=== PATIENT | male | born 1990 ===

== ENCOUNTER 2016-09-16 06:13 | Emergency (ER) | payer BC ==
[2016-09-16 06:25] VITALS: TEMP 98.7
--- NOTE | 2016-09-16 07:33 | ED PDOC ---
HPI: Chest Pain Time Seen by Provider: 09/16/16 07:12 Chief Complaint (Nursing): Chest Pain Chief Complaint (Provider): Chest Pain History Per: Patient History/Exam Limitations: no limitations Onset/Duration Of Symptoms: Days Current Symptoms Are (Timing): Still Present Severity: Moderate Pain Scale Rating Of: 7 Quality: Pressure Associated Symptoms: Dyspnea Modifying Factors: None Exacerbating Factors: Deep Breathing Alleviating Factors: None Additional Complaint(s): Patient is a 26 year old male with no past medical history, presents to ED for mid sternal chest pain that began 2 days ago. Patient notes pain is intermittent , pressure and 7/10. Patient states pain is worsened with deep breathing. Denies cough, fever, headache, palpations, radiation of pain or history of DVT . PMD: Dr. Porfirio Haque Past Medical History Reviewed: Historical Data, Nursing Documentation, Vital Signs Vital Signs: Last Vital Signs Temp 98.7 F 09/16/16 06:23 Pulse 58 L 09/16/16 07:48 Resp 12 09/16/16 07:48 BP 114/68 09/16/16 07:48 Pulse Ox 96 09/16/16 07:48 - Medical History PMH: Anxiety, Gastritis (2014) Denies: HTN, Chronic Kidney Disease - Surgical History Surgical History: Appendectomy - Family History Family History: States: Unknown Family Hx, Hypertension, Other (Maternal Aunt (+ ) " Heart problem" ) Denies: CAD - Living Arrangements Living Arrangements: With Family - Immunization History Hx Tetanus Toxoid Vaccination: No Hx Influenza Vaccination: No Hx Pneumococcal Vaccination: No - Home Medications Home Medications: Ambulatory Orders Medication Instructions Recorded Amoxicillin 875 mg PO BID #14 tablet 08/10/16 Ibuprofen [Motrin] 600 mg PO Q6 PRN #20 tab 08/10/16 Prilosec Otc 20 mg PO DAILY 08/10/16 Acetaminophen [Tylenol 325mg tab] 650 mg PO Q6H PRN #50 tab 09/16/16 - Allergies Allergies/Adverse Reactions: Allergies Allergy/AdvReac Type Severity Reaction Status Date / Time No Known Allergies Allergy Verified 08/10/16 17:00 MELYSSA Risk Score for UA/NSTEMI - MELYSSA Risk Score Age > 64: NO 3 or more CAD Risk Factors: NO Known CAD (Stenosis greater than 50%): NO Aspirin use in past 7 days: NO Severe Angina: NO EKG ST changes greater than 0.5mm: NO Positive Cardiac Marker: NO MELYSSA Score: 0 Risk %: 5% Review of Systems ROS Statement: Except As Marked, All Systems Reviewed And Found Negative Constitutional: Negative for: Fever, Chills Cardiovascular: Positive for: Chest Pain. Negative for: Palpitations, Light Headedness Respiratory: Positive for: Pleuritic Pain. Negative for: Cough Gastrointestinal: Negative for: Nausea, Vomiting Musculoskeletal: Negative for: Neck Pain, Back Pain Skin: Negative for: Rash Physical Exam - Reviewed Nursing Documentation Reviewed: Yes Vital Signs Reviewed: Yes - Physical Exam Appears: Positive for: Non-toxic, No Acute Distress Skin: Positive for: Normal Color, Warm Eye Exam: Positive for: Normal appearance Neck: Positive for: Normal, Painless ROM, Supple Cardiovascular/Chest: Positive for: Regular Rate, Rhythm. Negative for: JVD, Murmur Respiratory: Positive for: Normal Breath Sounds. Negative for: Respiratory Distress Back: Positive for: Normal Inspection Extremity: Positive for: Normal ROM. Negative for: Pedal Edema, Calf Tenderness Neurologic/Psych: Positive for: Alert, Oriented - Laboratory Results Result Diagrams: 09/16/16 07:45 09/16/16 07:45 - ECG ECG: Positive for: Interpreted By Me ECG Rhythm: Positive for: Normal QRS, Normal ST Segment, Sinus Bradycardia. Negative for: ST/T Changes Rate: 54 O2 Sat by Pulse Oximetry: 100 (RA) Pulse Ox Interpretation: Normal - Radiology X-Ray: Viewed By Me X-Ray Interpretation: No Acute Disease Medical Decision Making Medical Decision Making: Time: 724 Initial impression: Chest pain r/o ACS Initial plan: -- EKG -- BMP -- CK-MB -- CBC -- Creatine -- LDH -- Troponin -- CXR -- Cardiac monitoring Scribe Attestation: Documented by Magdalena Richardson acting as a scribe for Ashleigh Dao MD MD Scribe Attestation: All medical record entries made by the Scribe were at my direction and personally dictated by me. I have reviewed the chart and agree that the record accurately reflects my personal performance of the history, physical exam, medical decision making, and the department course for this patient. I have also personally directed, reviewed, and agree with the discharge instructions and disposition. Disposition - Clinical Impression Clinical Impression: Chest discomfort - Patient ED Disposition Is Patient to be Admitted: No Doctor Will See Patient In The: Office Counseled Patient/Family Regarding: Diagnosis, Need For Followup, Rx Given - Disposition Disposition: Routine/Home Disposition Time: 08:43 Condition: STABLE Prescriptions: Acetaminophen [Tylenol 325mg tab] 650 mg PO Q6H PRN #50 tab PRN Reason: Pain, Mild (1-3) Instructions: Chest Pain (ED) Forms: [facility] ED School/Work Excuse Print Language: TELUGU - POA Present On Arrival: None
[2016-09-16 07:53] VITALS: BP 114/68; RESP 12
[2016-09-16 07:58] LABS: BASO % 0.9 % (0.0-2.0); EOS # 0.1 K/uL (0.0-0.7); EOS % 3.2 % (0.0-4.0); LYMPH # 2.2 K/uL (1.0-4.3); MEAN CELL VOLUME 86.7 fl (80.0-94.0); MEAN CORPUSCULAR HEMOGLOBIN 28.9 pg (27.0-31.0); MEAN CORPUSCULAR HGB CONC 33.3 g/dL (33.0-37.0); MEAN PLATELET VOLUME 8.4 fl (7.2-11.7); MONO # 0.4 K/uL (0.0-0.8); MONO % 9.1 % (0.0-10.0); NEUT # 1.4 K/uL (1.8-7.0); NEUT % 33.8 % (50.0-75.0); NRBC % 0.5 % (0.0-0.0); RED CELL DISTRIBUTION WIDTH 13.6 % (11.5-14.5); WHITE BLOOD COUNT 4.2 K/uL (4.8-10.8)
[2016-09-16 08:09] LABS: BLOOD UREA NITROGEN 11 mg/dl (9-20); CALCIUM 9.7 mg/dL (8.4-10.2); CARBON DIOXIDE 29 mmol/L (22-30); CHLORIDE 103 mmol/L (98-107); GFR AFRICAN-AMERICAN > 60; GLUCOSE,RANDOM 86 mg/dL (75-110); POTASSIUM 4.4 MMOL/L (3.6-5.0); SODIUM 145 mmol/l (132-148)
[2016-09-16 08:44] VITALS: PULSE 54; O2SAT 100
--- NOTE | 2016-09-16 09:36 | RAD ---
HISTORY: chest pain COMPARISON: 10/29/2015 TECHNIQUE: Chest PA and lateral FINDINGS: LUNGS: No focal airspace opacity. PLEURA: No significant pleural effusion identified. No pneumothorax apparent. CARDIOVASCULAR: Normal. OSSEOUS STRUCTURES: No significant abnormalities. VISUALIZED UPPER ABDOMEN: Normal. OTHER FINDINGS: None. IMPRESSION: No focal airspace opacity.
--- NOTE | 2016-09-17 19:02 | CARD ---
APPROVED REPORT EKG Measurement Heart [id number] <Conclusion> Sinus bradycardia Otherwise normal ECG
== END 2016-09-16 08:59 | disposition home or self-care (01) ==
LOC: H.ER 06:13
DX: R07.9 Chest pain, unspecified (principal); F41.9 Anxiety disorder, unspecified

== ENCOUNTER 2016-10-13 09:30 | Day surgery (SDC) | payer BC ==
[2016-10-13] MEDS: Lactated Ringer's 500 ML IV ONE (12:29)
[2016-10-13 12:34] VITALS: O2SAT 100
[2016-10-13] MEDS ORDERED: Propofol 10 mg/ml Inj (20 ML) ONE ×2 (13:01→13:21)
[2016-10-13] MEDS ORDERED: Midazolam 2 MG/2 ML VIAL ONE (13:01)
[2016-10-13 13:30] VITALS: TEMP 97
[2016-10-13 13:47] VITALS: BP 107/64; PULSE 76; RESP 20
== END 2016-10-13 13:58 | disposition home or self-care (01) ==
LOC: H.ENDO 09:30
PROVIDERS: ATTEND Internal Medicine Gastroenterology
DX: K30 Functional dyspepsia (principal); K31.9 Disease of stomach and duodenum, unspecified; K44.9 Diaphragmatic hernia without obstruction or gangrene
CPT/HCPCS: 43239; 88305; J2001; J2250; J2704; J7120

== ENCOUNTER 2016-10-14 01:54 | Emergency (ER) | payer BC ==
[2016-10-14 02:21] VITALS: BP 123/78; PULSE 79; RESP 16; TEMP 98.1; O2SAT 100
--- NOTE | 2016-10-14 02:35 | ED PDOC ---
HPI: Abdomen Time Seen by Provider: 10/14/16 02:20 Chief Complaint (Nursing): Abdominal Pain Chief Complaint (Provider): abdominal pain History Per: Patient History/Exam Limitations: no limitations Onset/Duration Of Symptoms: Hrs (1) Current Symptoms Are (Timing): Still Present Location Of Pain/Discomfort: RUQ, Epigastric, LUQ Additional History Per: Patient Additional Complaint(s): 26 y/o male history of gastritis presents with upper abdominal pain x 1 hour. Associated vomiting x 2. Patient states he had endoscopy yesterday morning by Dr. Millan.. Denies fever, chest pain, shortness of breath, palpitations, changes in bowel movements. Past Medical History Reviewed: Historical Data, Nursing Documentation, Vital Signs Vital Signs: Last Vital Signs Temp 98.1 F 10/14/16 02:19 Pulse 79 10/14/16 02:19 Resp 16 10/14/16 02:19 BP 123/78 10/14/16 02:19 Pulse Ox 100 10/14/16 04:08 - Medical History PMH: Anxiety, Gastritis (2014) Denies: HTN, Chronic Kidney Disease - Surgical History Surgical History: Appendectomy - Family History Family History: States: Unknown Family Hx, Hypertension Denies: CAD - Immunization History Hx Tetanus Toxoid Vaccination: No Hx Influenza Vaccination: No Hx Pneumococcal Vaccination: No - Home Medications Home Medications: Ambulatory Orders Medication Instructions Recorded Omeprazole 40 mg PO DAILY 09/24/16 - Allergies Allergies/Adverse Reactions: Allergies Allergy/AdvReac Type Severity Reaction Status Date / Time No Known Allergies Allergy Verified 10/14/16 02:19 Review of Systems ROS Statement: Except As Marked, All Systems Reviewed And Found Negative Gastrointestinal: Positive for: Nausea, Vomiting, Abdominal Pain Physical Exam - Reviewed Nursing Documentation Reviewed: Yes Vital Signs Reviewed: Yes - Physical Exam Appears: Positive for: Well, Non-toxic, No Acute Distress Head Exam: Positive for: ATRAUMATIC, NORMAL INSPECTION, NORMOCEPHALIC Skin: Positive for: Normal Color Eye Exam: Positive for: Normal appearance ENT: Positive for: Normal ENT Inspection Cardiovascular/Chest: Positive for: Regular Rate, Rhythm Respiratory: Positive for: Normal Breath Sounds Gastrointestinal/Abdominal: Positive for: Bowel Sounds, Soft, Tenderness ( epigastric, ruq, luq) Back: Positive for: Normal Inspection Extremity: Positive for: Normal ROM Neurologic/Psych: Positive for: Alert, Oriented - Laboratory Results Result Diagrams: 10/14/16 02:55 10/14/16 02:55 - ECG O2 Sat by Pulse Oximetry: 100 - Radiology X-Ray: Viewed By Me X-Ray Interpretation: No Acute Disease - Progress ED Course And Treament: labs, chest xray, IV fluids, IV pepcid On re-eval, patient states he is feeling better. Patient discharged with instructions to follow up with GI as scheduled. Continue Omeprazole. Return to ED for worsening/concerning symptoms. Disposition - Clinical Impression Clinical Impression: Abdominal pain - Patient ED Disposition Is Patient to be Admitted: No Counseled Patient/Family Regarding: Studies Performed, Diagnosis, Need For Followup - Disposition Referrals: Jamia Billy MD [Primary Care Provider] - Disposition: Routine/Home Disposition Time: 04:07 Condition: IMPROVED Instructions: Abdominal Pain (ED) Print Language: JORDANIAN
[2016-10-14] MEDS: Sodium Chloride 0.9% 1,000 ML IV STA (02:52)
[2016-10-14 03:02] LABS: BASO # 0.1 K/uL (0.0-0.2); BASO % 1.2 % (0.0-2.0); EOS # 0.1 K/uL (0.0-0.7); EOS % 2.4 % (0.0-4.0); HEMATOCRIT 41.4 % (35.0-51.0); LYMPH # 2.5 K/uL (1.0-4.3); LYMPH % 58.4 % (20.0-40.0); MEAN CELL VOLUME 86.6 fl (80.0-94.0); MEAN CORPUSCULAR HEMOGLOBIN 29.2 pg (27.0-31.0); MEAN CORPUSCULAR HGB CONC 33.7 g/dL (33.0-37.0); MEAN PLATELET VOLUME 8.8 fl (7.2-11.7); MONO # 0.4 K/uL (0.0-0.8); NEUT # 1.3 K/uL (1.8-7.0); NRBC % 0.1 % (0.0-0.0); RED CELL DISTRIBUTION WIDTH 13.1 % (11.5-14.5); WHITE BLOOD COUNT 4.3 K/uL (4.8-10.8)
[2016-10-14 03:11] LABS: ALB/GLOB RATIO 1.2 (1.0-2.1); ALKALINE PHOSPHATASE 69 U/L (38-126); ALT/SGPT 42 U/L (21-72); AST/SGOT 31 U/L (17-59); BILIRUBIN,TOTAL 0.3 mg/dl (0.2-1.3); BLOOD UREA NITROGEN 12 mg/dl (9-20); CALCIUM 9.2 mg/dL (8.4-10.2); CARBON DIOXIDE 25 mmol/L (22-30); CHLORIDE 105 mmol/L (98-107); GFR AFRICAN-AMERICAN > 60; GLUCOSE,RANDOM 103 mg/dL (75-110); LIPASE 95 U/L (23-300); POTASSIUM 3.7 MMOL/L (3.6-5.0); SODIUM 146 mmol/l (132-148); TOTAL PROTEIN 7.4 G/DL (6.3-8.2)
--- NOTE | 2016-10-14 08:54 | RAD ---
HISTORY: abd pain COMPARISON: 09/16/2016 FINDINGS: LUNGS: No active pulmonary disease. PLEURA: No significant pleural effusion identified, no pneumothorax apparent. CARDIOVASCULAR: Normal. OSSEOUS STRUCTURES: No significant abnormalities. VISUALIZED UPPER ABDOMEN: Normal. OTHER FINDINGS: None. IMPRESSION: No active disease. No interval change
== END 2016-10-14 04:20 | disposition home or self-care (01) ==
LOC: H.ER 01:54
DX: R10.13 Epigastric pain (principal); R11.10 Vomiting, unspecified
CPT/HCPCS: 71010; 80053; 83690; 85025; 96361; 96374; 99282; J7040

== ENCOUNTER 2017-11-19 21:57 | Emergency (ER) | payer BC, MEDICAID ==
[2017-11-19 21:57] VITALS: BMI 30.1
[2017-11-19 22:30] VITALS: RESP 16; O2SAT 99
[2017-11-19 23:43] VITALS: BP 127/79; PULSE 81; TEMP 98.5
--- NOTE | 2017-11-20 03:28 | ED PDOC ---
HPI: Headache Time Seen by Provider: 11/19/17 22:33 Chief Complaint (Nursing): Headache Chief Complaint (Provider): Headache History Per: Patient History/Exam Limitations: no limitations Onset/Duration Of Symptoms: Days (x 1) Additional Complaint(s): 27 years old male presents to the ED for evaluation of intermittent episodes of left sided headache associated with L sided face numbness onset 1 day. Patient reports experiencing similar symptoms in the past. He admits taking Aleve with minimal relief prior to arrival. Otherwise: (-) thunderclap headache, (-) worse headache of life, (-) nausea, (-) vomiting, (-) photophobia, (-) URI symptoms, ( -) fever, (-) trauma, (-) other subjective neurologic symptoms. PMD: Angelica Billy Past Medical History Reviewed: Historical Data, Nursing Documentation, Vital Signs Vital Signs: Last Vital Signs Temp 98.5 F 11/19/17 23:42 Pulse 81 11/19/17 23:42 Resp 16 11/19/17 23:42 BP 127/79 11/19/17 23:42 Pulse Ox 99 11/19/17 23:42 - Medical History PMH: Anxiety, Gastritis (2014) Denies: HTN, Chronic Kidney Disease - Surgical History Surgical History: Appendectomy - Family History Family History: States: Hypertension - Social History Current smoker - smoking cessation education provided: No Alcohol: None Drugs: Denies - Immunization History Hx Tetanus Toxoid Vaccination: No Hx Influenza Vaccination: No Hx Pneumococcal Vaccination: No - Home Medications Home Medications: Ambulatory Orders Medication Instructions Recorded Omeprazole 40 mg PO DAILY 09/24/16 Metoclopramide HCl [Reglan] 10 mg PO QID PRN #20 tablet 11/19/17 Naproxen 500 mg PO BID PRN #30 tab 11/19/17 - Allergies Allergies/Adverse Reactions: Allergies Allergy/AdvReac Type Severity Reaction Status Date / Time No Known Allergies Allergy Verified 10/13/17 02:14 Review of Systems ROS Statement: Except As Marked, All Systems Reviewed And Found Negative Neurological: Positive for: Numbness (left sided), Headache (left sided) Physical Exam - Physical Exam Comments: GENERAL APPEARANCE: Patient is awake, alert, oriented x 3, in no acute distress. SKIN: Warm, dry; (-) cyanosis; (-) rash. HEAD: (-) scalp swelling or tenderness, (-) temporal artery tenderness. EYES: (-) conjunctival pallor, (-) scleral icterus. ENMT: (-) sinus tenderness; mucous membranes are moist. NECK: (-) tenderness, (-) stiffness, (-) meningismus, (-) lymphadenopathy. CHEST AND RESPIRATORY: (-) rales, (-) rhonchi, (-) wheezes; breath sounds equal bilaterally. HEART AND CARDIOVASCULAR: (-) irregularity; (-) murmur, (-) gallop. ABDOMEN AND GI: Soft; (-) tenderness. EXTREMITIES: (-) deformity. NEURO AND PSYCH: Mental status as above. 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 Strength symmetric. - ECG O2 Sat by Pulse Oximetry: 99 (RA) Pulse Ox Interpretation: Normal Medical Decision Making Medical Decision Making: Time: 2252 Initial Plan: --Reglan 10 mg IM --Toradol 30 mg IM Previous medical record reviewed and patient was evaluated prior in Jul 27, 2017 for dizziness at [facility]. CT head and labs including CBC and CMP were within normal limits. Time: 2329 Upon reevaluation, patient reports improvement of symptoms. Discussed diagnosis of migraines with patient and he is comfortable being discharged home. Based on history and exam, plan will be for outpatient follow up. Patient instructed to follow-up with pmd in 1-2 days without fail. Advised to take medication as prescribed. Return to the emergency room at any time for any new or worsening symptoms. Patient states he fully agrees with and understands discharge instructions. States that he agrees with the plan and disposition. Verbalized and repeated discharge instructions and plan. I have given the patient opportunity to ask any additional questions. Scribe Attestation: Documented by Zohreh Trammell, acting as a scribe for Jaimee Lu PA-C. Provider Scribe Attestation: All medical record entries made by the Scribe were at my direction and personally dictated by me. I have reviewed the chart and agree that the record accurately reflects my personal performance of the history, physical exam, medical decision making, and the department course for this patient. I have also personally directed, reviewed, and agree with the discharge instructions and disposition. Disposition - Clinical Impression Clinical Impression: Acute headache - Patient ED Disposition Is Patient to be Admitted: No Counseled Patient/Family Regarding: Diagnosis, Need For Followup, Rx Given - Disposition Disposition: Routine/Home Disposition Time: 23:30 Condition: STABLE Additional Instructions: Thank you for letting us take care of you today. You were treated for headache. The emergency medical care you received today was directed at your acute symptoms. If you were prescribed any medication, please fill it and take as directed. It may take several days for your symptoms to resolve. Return to the Emergency Department if your symptoms worsen, do not improve, or if you have any other problems. Please contact your doctor in 2 days for re-evaluation and follow up. Bring any paperwork you were given at discharge with you along with any medications you are taking to your follow up visit. Our treatment cannot replace ongoing medical care by a primary care provider (PCP) outside of the emergency department. Thank you for allowing the [facility] team to be part of your care today. Prescriptions: Metoclopramide HCl [Reglan] 10 mg PO QID PRN #20 tablet PRN Reason: Headache Naproxen 500 mg PO BID PRN #30 tab PRN Reason: Headache Instructions: Migraine Headache (DC), Acute Headache (ED) Forms: [employer] (Sinhala) Print Language: SRI LANKAN - PA / PHOTOGRAPHER STILL / Resident Statement MD/DO has reviewed & agrees with the documentation as recorded.
== END 2017-11-19 23:43 | disposition home or self-care (01) ==
LOC: H.ER 21:57
DX: R51 Headache (principal); F41.9 Anxiety disorder, unspecified
CPT/HCPCS: 96372; 99285; J1885